=== PATIENT | male | born 1945 | race African-American/Black ===

== ENCOUNTER 2019-07-01 20:27 | Inpatient (IN) | payer BC ==
--- NOTE | 2019-07-01 21:31 | PDOC ---
History of Present Illness - General Chief Complaint: Pain, Acute Stated Complaint: BACK PAIN History Source: Patient Exam Limitations: No Limitations - History of Present Illness Initial Comments: 07/01/19 23:56 74 yo M with a hx of HTN, HLD, CVA (right sided deficits (Weakness)) and nephrolithiasis presents to the emergency department with right flank pain. Per the patient, he states it occurred suddenly this morning. The pain is consistent with his previous episode of nephrolithiasis and is sharp in nature, 8/10, and worsens with movement and denies relieving factors. Endorses nausea and vomiting. Denies the following: fevers, chills, chest pain, SOB, abdominal pain, dysuria, hematuria, diarrhea, urinary urgency, urinary frequency, diarrhea , hematochezia, testicular swelling/pain, penile discharge, and constipation. Allergies: NKDA Past History - Past Medical History Allergies/Adverse Reactions: Allergies Allergy/AdvReac Type Severity Reaction Status Date / Time No Known Drug Allergies Allergy Verified 07/01/19 20:33 Home Medications: Ambulatory Orders Ascorbic Acid [Vitamin C -] 1,000 mg PO DAILY 09/13/13 Aspirin Coated [Ecotrin -] 81 mg PO DAILY 09/13/13 Hydrochlorothiazide [Hctz -] 25 mg PO DAILY 09/13/13 Metoprolol Succinate [Toprol XL -] 25 mg PO DAILY 09/13/13 Valsartan [Diovan] 160 mg PO DAILY 09/13/13 Vitamin E [Formula E] 400 unit PO DAILY 09/13/13 Oxycodone HCl/Acetaminophen [Percocet 5-325 mg Tablet -] 1 - 2 combo PO Q6H PRN #40 tab 09/22/13 CVA: Yes ('06 RIGHT SIDED WEAKNESS) COPD: No HTN: Yes Hypercholesterolemia: Yes - Surgical History Abdominal Surgery: Yes (HERNIA) - Psycho Social/Smoking Cessation Hx Smoking History: Never smoked Have you smoked in the past 12 months: No Hx Alcohol Use: Yes (RARE) Substance Use Type: Alcohol Hx Substance Use Treatment: No Review of Systems - Review of Systems Able to Perform ROS?: Yes Is the patient limited Greenlandic proficient: No Constitutional: No: Chills, Diaphoresis, Fever, Weakness HEENTM: No: Eye Pain, Ear Pain, Nose Pain, Throat Pain, Mouth Pain Respiratory: No: Cough, Shortness of Breath, Hemoptysis Cardiac (ROS): No: Chest Pain, Lightheadedness, Palpitations, Chest Tightness ABD/GI: Yes: Nausea, Vomiting. No: Constipated, Diarrhea, Rectal Bleeding, Tarry Stools : Yes: Flank Pain (right). No: Burning, Dysuria, Hematuria, Testicular Mass, Testicular Swelling, Testicular Pain Musculoskeletal: No: Back Pain, Joint Pain, Neck Pain Integumentary: No: Bruising, Erythema, Rash Neurological: No: Headache, Numbness, Tingling, Tremors Psychiatric: No: Change in Appetite Endocrine: No: Unexplained Weight Loss Hematologic/Lymphatic: No: Anemia *Physical Exam - Vital Signs Last Vital Signs Temp Pulse Resp BP Pulse Ox 97.5 F L 61 18 213/92 H 97 07/01/19 20:28 07/01/19 20:28 07/01/19 20:28 07/01/19 20:28 07/01/19 20:28 - Physical Exam General Appearance: Yes: Nourished, Appropriately Dressed. No: Apparent Distress, Intoxicated, Obese HEENT: positive: EOMI, SOHAN, Normal Voice, Symmetrical, Pharynx Normal, Hearing Grossly Normal. negative: Pale Conjunctivae, Scleral Icterus (R), Scleral Icterus (L), Muffled/Hoarse voice, Pharyngeal Erythema, Tonsillar Exudate, Tonsillar Erythema, Nasal Congestion, Rhinorrhea, Sinus Tenderness, Excessive drooling Neck: positive: Trachea midline, Supple. negative: Tender, Lymphadenopathy (R) , Lymphadenopathy (L), Tender lateral, Tender midline Respiratory/Chest: positive: Lungs Clear, Normal Breath Sounds. negative: Chest Tender, Respiratory Distress, Accessory Muscle Use, Crackles, Rales, Rhonchi, Stridor Cardiovascular: positive: Regular Rhythm, Regular Rate, S1, S2. negative: Systolic Murmur Gastrointestinal/Abdominal: positive: Normal Bowel Sounds, Flat, Soft. negative : Tender Lymphatic: negative: Adenopathy Musculoskeletal: positive: Normal Inspection, CVA Tenderness (R). negative: CVA Tenderness (L), Vertebral Tenderness Extremity: positive: Normal Capillary Refill, Normal Inspection, Normal Range of Motion. negative: Tender, Calf Tenderness, Erythema Integumentary: positive: Normal Color, Dry, Warm. negative: Swelling, Ecchymosis Neurologic: positive: Fully Oriented, Alert, Normal Mood/Affect ED Treatment Course - LABORATORY CBC & Chemistry Diagram: 07/01/19 21:40 07/01/19 21:40 Medical Decision Making - Medical Decision Making 74 yo M with a hx of HTN, HLD, CVA (right sided deficits (Weakness)) and nephrolithiasis presents to the emergency department with right flank pain. Initial vitals: Initial Vital Signs Temp Pulse Resp BP Pulse Ox 97.5 F L 61 18 213/92 H 97 07/01/19 20:28 07/01/19 20:28 07/01/19 20:28 07/01/19 20:28 07/01/19 20:28 Work up: patient presents with right flank pain that is consistent with nephrolithiasis. ddx: UTI vs Nephrolithiasis vs pyelonephritis vs appendicitis vs colitis vs msk strain vs AAA US AAA study shows no dilatation of the aorta at the prox, mid, and distal portion. Right kidney US shows multiple simple cysts with mild hydronephrosis. Laboratory Tests 07/01/19 07/01/19 21:40 21:40 WBC 12.2 H RBC 5.24 Hgb 16.0 Hct 46.9 MCV 89.4 MCH 30.6 MCHC 34.2 RDW 13.8 Plt Count 160 MPV 9.8 Absolute Neuts (auto) 10.7 H Neutrophils % 87.2 H Lymphocytes % 8.0 Monocytes % 4.4 Eosinophils % 0.1 Basophils % 0.3 Nucleated RBC % 0 Sodium 139 Potassium 3.9 Chloride 104 Carbon Dioxide 28 Anion Gap 6 L BUN 15.8 Creatinine 1.3 Est GFR (CKD-EPI)AfAm 63.18 Est GFR (CKD-EPI)NonAf 54.51 Random Glucose 124 H Calcium 9.1 Total Bilirubin 0.5 AST 28 ALT 30 Alkaline Phosphatase 55 Total Protein 7.[address] abdomen and pelvis: on my read, the patient has extensive ketan-nephric stranding around the right kidney with multiple large cysts with mild hydronephrosis and a 7 mm stone at the right UVJ. Awaiting official report Patient was given toradol, tylenol, and morphine with marked improvement in symptoms. Patient to be signed out to Dr. Phan with pending UA studies. Will likely need urology consult for infected stone and inpatient admission for urological intervention and abx. 07/01/19 23:34 148/78 BP on repeat Discharge - Discharge Information Problems reviewed: Yes Clinical Impression/Diagnosis: Nephrolithiasis, Hydronephrosis - Follow up/Referral - Patient Discharge Instructions - Post Discharge Activity
[2019-07-01] MEDS ORDERED: ACETAMINOPHEN 1000 MG/100 ML VIAL (NON FORMULARY) IVPB ONE (21:32)
[2019-07-01] MEDS ORDERED: KETOROLAC TROMETHAMINE 15 MG/ML VIAL IVPUSH ONE (21:32)
[2019-07-01] MEDS ORDERED: SODIUM CHLORIDE 1,000 ML IV STA (21:32)
[2019-07-01] MEDS ORDERED: morphine CARPU-JECT 2 MG/1 ML DISP.SYRIN IVPUSH ONE (21:32)
[2019-07-01] MEDS ORDERED: KETOROLAC TROMETHAMINE 15 MG/ML VIAL ONE (21:55)
[2019-07-01] MEDS ORDERED: morphine SULFATE 4 MG/ML VIAL ONE (21:55)
[2019-07-01] MEDS ORDERED: ACETAMINOPHEN INJECTION 100 ML IVPB ONE (21:55)
[2019-07-01 21:59] LABS: BASO % 0.3 % (0-2.0); EOS % 0.1 % (0-4.5); HEMATOCRIT 46.9 % (35.4-49); MCH 30.6 pg (25.7-33.7); MCHC 34.2 g/dl (32.0-35.9); MEAN CELL VOLUME 89.4 fl (80-96); MEAN PLT VOLUME 9.8 fl (7.5-11.1); MONO % 4.4 % (3.8-10.2); NEUT % 87.2 % (42.8-82.8); PLATELET COUNT 160 K/MM3 (134-434); RBC 5.24 M/mm3 (4.00-5.60); RDW 13.8 % (11.9-15.9); WHITE BLOOD COUNT 12.2 K/mm3 (4.0-10.0)
[2019-07-01 22:26] LABS: ALBUMIN 3.9 g/dl (3.4-5.0); BILIRUBIN,TOTAL 0.5 mg/dL (0.2-1); BLOOD UREA NITROGEN 15.8 mg/dL (7-18); CALCIUM 9.1 mg/dL (8.5-10.1); CREATININE 1.3 mg/dL (0.55-1.3); POTASSIUM 3.9 mmol/L (3.5-5.1); TOT PROT 7.6 g/dl (6.4-8.2)
[2019-07-01] MEDS ORDERED: CLINDAMYCIN 600MG PREMIX IVPB 600 MG/50 ML BAG IVPB ONE (22:59)
[2019-07-01] MEDS ORDERED: CEFTRIAXONE 1,000 MG in DEXTROSE 5%-WATER - 50 ML IVPB ONE (23:56)
[2019-07-02] MEDS ORDERED: TAMSULOSIN HCL 0.4 MG CAP PO ONE (00:03)
[2019-07-02] MEDS ORDERED: TAMSULOSIN HCL 0.4 MG CAP ONE (00:27)
[2019-07-02] MEDS ORDERED: CEFTRIAXONE 1 GM/50 ML BAG ONE (00:27)
[2019-07-02 02:49] LABS: PH,URINE 6.5 (5.0-8.0); URINE APPEARANCE CLEAR; URINE BILIRUBIN NEGATIVE (NEGATIVE); URINE COLOR YELLOW; URINE GLUCOSE (UA) NEGATIVE (NEGATIVE); URINE KETONE NEGATIVE (NEGATIVE)
[2019-07-02 02:50] LABS: URINE NITRITE NEGATIVE (NEGATIVE)
[2019-07-02 02:51] LABS: EPI CELLS 2.6 /HPF (0-5/HPF); HYALINE CASTS 2.23 /lpf (0-8); URINE LEUK ESTERASE NEGATIVE (NEGATIVE); URINE PROTEIN 30 (NEGATIVE); URINE RBC 242.1 /hpf (0-4); URINE WBC 9.4 /hpf (0-5)
[2019-07-02] MEDS ORDERED: HYDROmorphone HCL 2 MG TABLET PO SCH (09:15)
--- NOTE | 2019-07-02 10:50 | EKG ---
Test Reason : Blood Pressure : / mmHG Vent. Rate : 070 BPM Atrial Rate : 070 BPM P-R Int : 184 ms QRS Dur : 084 ms QT Int : 394 ms P-R-T Axes : 061 -07 012 degrees QTc Int : 425 ms NORMAL SINUS RHYTHM MINIMAL VOLTAGE CRITERIA FOR LVH, MAY BE NORMAL VARIANT WHEN COMPARED WITH ECG OF 02-JUL-2019 00:27, NO SIGNIFICANT CHANGE WAS FOUND Confirmed by ZOYA RIDER MD ([id number]) on 07/02/2019 10:50:12 AM Referred By: LUNA BAUMANN Confirmed By:ZOYA RIDER MD
--- NOTE | 2019-07-02 11:01 | EKG ---
Test Reason : Blood Pressure : / mmHG Vent. Rate : 061 BPM Atrial Rate : 061 BPM P-R Int : 180 ms QRS Dur : 078 ms QT Int : 408 ms P-R-T Axes : 064 005 036 degrees QTc Int : 410 ms NORMAL SINUS RHYTHM WITH SINUS ARRHYTHMIA WHEN COMPARED WITH ECG OF 24-NOV-2005 15:10, NO SIGNIFICANT CHANGE WAS FOUND Confirmed by ZOYA RIDER MD ([id number]) on 07/02/2019 11:01:01 AM Referred By: Confirmed By:ZOYA RIDER MD
[2019-07-02 11:07] LABS: BASO % 0.5 % (0-2.0); EOS % 0.9 % (0-4.5); HEMATOCRIT 43.1 % (35.4-49); HEMOGLOBIN 14.8 GM/dL (11.7-16.9); LYMPH % 16.7 % (8-40); MCH 30.5 pg (25.7-33.7); MCHC 34.3 g/dl (32.0-35.9); MEAN PLT VOLUME 9.5 fl (7.5-11.1); MONO % 10.9 % (3.8-10.2); PLATELET COUNT 134 K/MM3 (134-434); RBC 4.84 M/mm3 (4.00-5.60); RDW 13.9 % (11.9-15.9); WHITE BLOOD COUNT 9.6 K/mm3 (4.0-10.0)
[2019-07-02] MEDS: LOSARTAN POTASSIUM 50 MG TABLET (FP) PO SCH (11:11)
[2019-07-02] MEDS: SODIUM CHLORIDE 1,000 ML IV SCH (11:11)
[2019-07-02] MEDS: ASPIRIN COATED 81 MG TABLET.EC PO SCH (11:11)
[2019-07-02] MEDS: HYDROCHLOROTHIAZIDE 25 MG TABLET (FP) PO SCH (11:12)
[2019-07-02] MEDS: metoPROLOL SUCCINATE 25 MG TAB.SR.24H (FP) PO SCH (11:12)
[2019-07-02 11:19] LABS: INR 1.06 (0.83-1.09); PROTHROMBIN TIME (PATIENT) 12.5 SEC (9.7-13.0)
[2019-07-02 11:37] LABS: ALBUMIN 3.4 g/dl (3.4-5.0); BILIRUBIN,TOTAL 0.7 mg/dL (0.2-1); BLOOD UREA NITROGEN 19.9 mg/dL (7-18); CALCIUM 8.7 mg/dL (8.5-10.1); CREATININE 1.3 mg/dL (0.55-1.3); POTASSIUM 3.7 mmol/L (3.5-5.1); TOT PROT 6.7 g/dl (6.4-8.2)
--- NOTE | 2019-07-02 13:15 | CON.ID ---
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 Patient presents to the ED today with right sided flank pain that radiates to the right side of the abdomen,according to the patient the pain radiated down currently he still feels that he is in discomfort and the feels a sensation patient has a pretty large sized stone, urology has seen the patient and the plan is to take the patient to the or for surgery for the renal stone - History Source History Provided By: Patient Limitations to Obtaining History: No Limitations - Alcohol/Substance Use Hx Alcohol Use: Yes (RARE) - Smoking History Smoking history: Never smoked Have you smoked in the past 12 months: No Home Medications - Allergies Allergies/Adverse Reactions: Allergies Allergy/AdvReac Type Severity Reaction Status Date / Time No Known Drug Allergies Allergy Verified 07/01/19 20:33 - Home Medications Home Medications: Ambulatory Orders Ascorbic Acid [Vitamin C -] 1,000 mg PO DAILY 09/13/13 Aspirin Coated [Ecotrin -] 81 mg PO DAILY 09/13/13 Hydrochlorothiazide [Hctz -] 25 mg PO DAILY 09/13/13 Metoprolol Succinate [Toprol XL -] 25 mg PO DAILY 09/13/13 Valsartan [Diovan] 160 mg PO DAILY 09/13/13 Vitamin E [Formula E] 400 unit PO DAILY 09/13/13 Oxycodone HCl/Acetaminophen [Percocet 5-325 mg Tablet -] 1 - 2 combo PO Q6H PRN #40 tab 09/22/13 Review of Systems - Review of Systems Constitutional: reports: No Symptoms Eyes: reports: No Symptoms HENT: reports: No Symptoms Neck: reports: No Symptoms Cardiovascular: reports: No Symptoms Respiratory: reports: No Symptoms Gastrointestinal: reports: No Symptoms Genitourinary: reports: Flank Pain Musculoskeletal: reports: No Symptoms Integumentary: reports: No Symptoms Neurological: reports: No Symptoms Endocrine: reports: No Symptoms Hematology/Lymphatic: reports: No Symptoms Psychiatric: reports: No Symptoms Physical Exam Vital Signs: Vital Signs Temperature 97.6 F 07/02/19 13:07 Pulse Rate 61 07/02/19 13:07 Respiratory Rate 18 07/02/19 13:07 Blood Pressure 152/73 07/02/19 13:07 O2 Sat by Pulse Oximetry (%) 96 07/02/19 12:45 Constitutional: Yes: Well Nourished, No Distress, Calm Cardiovascular: Yes: Regular Rate and Rhythm Respiratory: Yes: Regular, CTA Bilaterally Gastrointestinal: Yes: Normal Bowel Sounds, Soft Renal/: Yes: CVA Tenderness - Right Musculoskeletal: Yes: WNL Extremities: Yes: WNL Neurological: Yes: Alert, Oriented Psychiatric: Yes: Alert, Oriented Labs: CBC, BMP 07/02/19 10:52 07/02/19 10:52 Imaging - Results Cat Scan: Report Reviewed, Image Reviewed Assessment/Plan patient with multiple medical problems with flank pain for surgery today plan will continue ceftriaxone await for surgery hydration rest as per the team
--- NOTE | 2019-07-02 13:20 | HP ---
Admitting History and Physical - Admission Chief Complaint: rt flank pain scale 6 last pm. 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 Renal/: Yes: BPH, Renal Calculi Musculoskeletal: Yes: Hemiplegia - Smoking History Smoking history: Never smoked Have you smoked in the past 12 months: No - Alcohol/Substance Use Hx Alcohol Use: Yes (RARE) - Social History Usual Living Arrangement: Yes: With Spouse ADL: Independent History of Recent Travel: No Home Medications - Allergies Allergies/Adverse Reactions: Allergies Allergy/AdvReac Type Severity Reaction Status Date / Time No Known Drug Allergies Allergy Verified 07/01/19 20:33 - Home Medications Home Medications: Ambulatory Orders Ascorbic Acid [Vitamin C -] 1,000 mg PO DAILY 09/13/13 Aspirin Coated [Ecotrin -] 81 mg PO DAILY 09/13/13 Hydrochlorothiazide [Hctz -] 25 mg PO DAILY 09/13/13 Metoprolol Succinate [Toprol XL -] 25 mg PO DAILY 09/13/13 Valsartan [Diovan] 160 mg PO DAILY 09/13/13 Vitamin E [Formula E] 400 unit PO DAILY 09/13/13 Oxycodone HCl/Acetaminophen [Percocet 5-325 mg Tablet -] 1 - 2 combo PO Q6H PRN #40 tab 09/22/13 Family Medical History Family History: Unremarkable Review of Systems - Review of Systems Constitutional: reports: No Symptoms Eyes: reports: No Symptoms, Floaters HENT: reports: No Symptoms Neck: reports: No Symptoms Cardiovascular: reports: No Symptoms Respiratory: reports: No Symptoms Gastrointestinal: reports: No Symptoms Genitourinary: reports: Flank Pain Breasts: reports: No Symptoms Reported Musculoskeletal: reports: No Symptoms Integumentary: reports: No Symptoms Neurological: reports: Other (rt larisa) Endocrine: reports: No Symptoms Hematology/Lymphatic: reports: No Symptoms Psychiatric: reports: No Symptoms Physical Examination Vital Signs: Vital Signs Temperature 97.6 F 07/02/19 13:07 Pulse Rate 61 07/02/19 13:07 Respiratory Rate 18 07/02/19 13:07 Blood Pressure 152/73 07/02/19 13:07 O2 Sat by Pulse Oximetry (%) 96 07/02/19 12:45 Constitutional: Yes: Calm Eyes: Yes: WNL HENT: Yes: WNL Neck: Yes: WNL Cardiovascular: Yes: WNL Respiratory: Yes: WNL Gastrointestinal: Yes: WNL ...Rectal Exam: Yes: Deferred Renal/: Yes: CVA Tenderness - Left Breast(s): Yes: WNL Musculoskeletal: Yes: WNL Extremities: Yes: WNL Edema: No Peripheral Pulses WNL: Yes Integumentary: Yes: WNL Neurological: Yes: WNL ...Motor Strength: WNL Psychiatric: Yes: WNL Labs: CBC, BMP 07/02/19 10:52 07/02/19 10:52 Assessment/Plan cleared procedure vss gu today ? eswal vs lithotripsy ? stent
[2019-07-02 13:23] VITALS: BMI 28.9
[2019-07-02] MEDS ORDERED: cefTRIAXone SODIUM 1 GM VIAL ONE (13:55)
[2019-07-02] MEDS ORDERED: DEXTROSE 5%-WATER - 50 ML IVPB ONE (13:56)
[2019-07-02] MEDS: CEFTRIAXONE 1 GM in DEXTROSE 5%-WATER - 50 ML IVPB SCH (14:09)
[2019-07-02] MEDS ORDERED: GENTAMICIN 80MG PREMIX BAG IVPB ONE (14:20)
[2019-07-02] MEDS ORDERED: PROPOFOL 20 ML ONE ×2 (15:45)
[2019-07-02] MEDS ORDERED: MIDAZOLAM HCL 2 MG/2 ML SINGLE DOSE VIAL ONE (15:46)
[2019-07-02] MEDS ORDERED: SUCCINYLCHOLINE CHLORIDE 200 MG/10 ML SYRINGE ONE (15:46)
--- NOTE | 2019-07-02 16:21 | CONS ---
DATE OF CONSULTATION: DATE OF DICTATION: 07/02/2019 HISTORY OF PRESENT ILLNESS: Patient is a 74-year-old male, admitted via the emergency room, with acute onset of right flank pain colicky in nature. This began last night. The pain radiates down to the right groin, right lower quadrant, and testicle, sharp and colicky in nature. Patient has had a CVA in the past with no residual. He also has history of BPH. He never smoked. He rarely uses alcohol. He works in the [employer]. He states that his father had prostate cancer. There is no recent travel. There are no known drug allergies. In the emergency room, his temperature was 97.6, blood pressure 152/73, pulse oximetry 96, respirations 18 and regular. His white count was 9.6, hemoglobin and hematocrit is 14.8 over 43.1, platelets were 134, BUN and creatinine were 19.9 over 1.3, random glucose was 93. The patient underwent a CT of the abdomen and pelvis without contrast and this revealed distal right ureteral stone causing proximal hydroureteronephrosis. The patient's liver was negative. Gallbladder negative. Biliary ducts nondilated. Pancreas negative. Spleen negative. Adrenals negative. The kidneys revealed right perinephric stranding with hydroureteronephrosis. The stone that was previously in the renal pelvis is now in the lower ureter and measures 8.3 mm. There are right-sided, multiple renal cysts, the most dominant one is in the upper pole measuring 6.1 cm. The left kidney reveals multiple cysts in the lower pole and upper pole. IMPRESSION: At present is right hydronephrosis, right ureteral stone. PLAN: Is for a cystoscopy, right retrograde pyelogram, right ureteroscopic laser lithotripsy with placement of a JJ stent. Patient will undergo a stone workup, including a 24-hour urine collection, as well as a PTH level, uric acid, oxylate, and phosphorus level. This was explained to patient and family and they agreed. Wendy [id number]
[2019-07-02] MEDS ORDERED: EPHEDRINE SULFATE/0.9% NACL/PF 50 MG/10 ML SYRINGE NR ONE (16:22)
--- NOTE | 2019-07-02 16:56 | OP ---
Operative Note - Note: Operative Date: 07/02/19 Pre-Operative Diagnosis: RT. HYDRONEPHROSIS, RT. MID-URETERAL STONE Operation: CYSTO, RT. RETROGRADE PYELOGRAM, RT. URETEROSCOPY AND STONE MANIPULATION AND PLACEMENT OF A RT. 24CM-6F JJ STENT. PT. WILL NEED OP ESWL NEXT WK. Findings: IMPACTED RT. MID-URETERAL STONE WITH RT. HYDROURETERONEPHROSIS. Post-Operative Diagnosis: Same as Pre-op Surgeon: Semaj Anna Anesthesia: General Specimens Removed: URINE Estimated Blood Loss (mls): 0 Drains & Tubes with Location: 24CM-6F-JJ STENT Drains, Volume Out (mls): 0 Blood Volume Replaced (mls): 0 Fluid Volume Replaced (mls): 0 Operative Report Dictated: Yes
[2019-07-02] MEDS ORDERED: ONDANSETRON 4 MG/2 ML VIAL IVPUSH PRN (17:47)
[2019-07-02] MEDS ORDERED: LACTATED RINGERS SOLUTION 1,000 ML IV SCH ×2 (18:00→18:30)
--- NOTE | 2019-07-02 19:00 | OP ---
DATE OF OPERATION: DATE OF DICTATION: 07/02/2019 PREOPERATIVE DIAGNOSIS: Right hydronephrosis. Right ureteral stone. POSTOPERATIVE DIAGNOSIS: Right hydronephrosis. Right ureteral stone. OPERATIVE PROCEDURE: Cystourethroscopy, right retrograde pyelogram, right ureteroscopy, and placement of a right JJ stent. ANESTHESIA: General. DESCRIPTION OF PROCEDURE: Under above stated anesthesia, patient was prepped and draped in the usual sterile manner. He was placed in the dorsal lithotomy position. External genitalia were atraumatic. Meatus is adequate. Cystoscopy using a continuous flow 30-degree scope revealed normal anterior urethra. Prostatic urethra revealed mild bilateral hypertrophy of the prostate. The bladder was entered. Urine was collected for HEEL SEAT SANDER. Inspection of the bladder revealed a grade 1 trabeculation. No lesions were noted. No calculi were seen. Ureteral orifices were within normal limits with efflux of clear urine from the left, none was seen from the right. A Flexi-Tip catheter was placed into the right ureteral orifice and 5 mL of contrast was injected. This revealed dilated lower ureter with no advancement of the contrast above the lower third of the ureter. The cystoscope was removed. Ureteroscopy was also performed, and this revealed a stone in the upper portion of the lower 3rd ureter with some maneuvering and multiple attempts. A glidewire was passed by the stone and into the right renal pelvis. A 24-cm, 6-Malay JJ stent was placed into the right kidney. X-rays confirmed good position of the stents. The bladder was emptied, the scope was removed. The patient tolerated the procedure well. He returned to the recovery room in good condition. Wendy [id number]
[2019-07-03 02:34] VITALS: PULSE 80
[2019-07-03 07:56] LABS: BASO % 0.3 % (0-2.0); EOS % 1.6 % (0-4.5); HEMATOCRIT 38.6 % (35.4-49); HEMOGLOBIN 13.3 GM/dL (11.7-16.9); LYMPH % 23.8 % (8-40); MCH 30.6 pg (25.7-33.7); MCHC 34.5 g/dl (32.0-35.9); MEAN CELL VOLUME 88.7 fl (80-96); MEAN PLT VOLUME 9.8 fl (7.5-11.1); MONO % 9.2 % (3.8-10.2); NEUT % 65.1 % (42.8-82.8); PLATELET COUNT 133 K/MM3 (134-434); RBC 4.35 M/mm3 (4.00-5.60); RDW 13.4 % (11.9-15.9); WHITE BLOOD COUNT 6.5 K/mm3 (4.0-10.0)
[2019-07-03 08:16] LABS: BILIRUBIN,TOTAL 0.6 mg/dL (0.2-1); BLOOD UREA NITROGEN 17.9 mg/dL (7-18); CREATININE 1.2 mg/dL (0.55-1.3); POTASSIUM 3.4 mmol/L (3.5-5.1)
[2019-07-03] MEDS ORDERED: ACETAMINOPHEN 325 MG TABLET (FP) PO PRN (08:29)
[2019-07-03] MEDS ORDERED: TAMSULOSIN HCL 0.4 MG CAP PO SCH (08:30)
[2019-07-03] MEDS ORDERED: DEXTROSE 5%-WATER - 50 ML IVPB ONE (09:33)
[2019-07-03] MEDS ORDERED: cefTRIAXone SODIUM 1 GM VIAL ONE (09:33)
[2019-07-03] MEDS: SODIUM CHLORIDE 1,000 ML IV SCH (09:47)
[2019-07-03] MEDS: CEFTRIAXONE 1 GM in DEXTROSE 5%-WATER - 50 ML IVPB SCH (09:47)
[2019-07-03] MEDS: ASPIRIN COATED 81 MG TABLET.EC PO SCH (09:47)
[2019-07-03] MEDS: LOSARTAN POTASSIUM 50 MG TABLET (FP) PO SCH (09:48)
[2019-07-03] MEDS: HYDROCHLOROTHIAZIDE 25 MG TABLET (FP) PO SCH (09:48)
[2019-07-03] MEDS: metoPROLOL SUCCINATE 25 MG TAB.SR.24H (FP) PO SCH (09:48)
[2019-07-03 09:53] VITALS: BP 140/68; TEMP 98.4
--- NOTE | 2019-07-03 12:20 | DS ---
Physical Examination Vital Signs: Vital Signs Temperature 98.4 F 07/03/19 09:00 Pulse Rate 80 07/03/19 09:00 Respiratory Rate 17 07/03/19 09:00 Blood Pressure 140/68 07/03/19 09:00 O2 Sat by Pulse Oximetry (%) 94 L 07/02/19 21:00 Constitutional: Yes: Well Nourished Eyes: Yes: WNL HENT: Yes: WNL Neck: Yes: WNL Cardiovascular: Yes: WNL Respiratory: Yes: WNL Gastrointestinal: Yes: WNL ...Rectal Exam: Yes: Deferred Renal/: Yes: Hematuria Breast(s): Yes: WNL Musculoskeletal: Yes: WNL Extremities: Yes: WNL Edema: No Peripheral Pulses WNL: Yes Integumentary: Yes: WNL Wound/Incision: Yes: Clean/Dry Neurological: Yes: WNL ...Motor Strength: WNL Psychiatric: Yes: WNL Labs: CBC, BMP 07/03/19 06:20 07/03/19 06:20 Discharge Summary Problems reviewed: Yes Reason For Visit: CALCULUS OF KIDNEY Current Active Problems Hydronephrosis (Acute) Nephrolithiasis (Acute) - Instructions Diet, Activity, Other Instructions: gu f/u out pt to make appt appy w me wed 1200 noon cont all tx as is home sono renal prior to leaving d/c pt home as directed Referrals: Jaime Anna RES [Primary Care Provider] - - Home Medications Comprehensive Discharge Medication List: Ambulatory Orders Ascorbic Acid [Vitamin C -] 1,000 mg PO DAILY 09/13/13 Aspirin Coated [Ecotrin -] 81 mg PO DAILY 09/13/13 Hydrochlorothiazide [Hctz -] 25 mg PO DAILY 09/13/13 Metoprolol Succinate [Toprol XL -] 25 mg PO DAILY 09/13/13 Valsartan [Diovan] 160 mg PO DAILY 09/13/13 Vitamin E [Formula E] 400 unit PO DAILY 09/13/13 Oxycodone HCl/Acetaminophen [Percocet 5-325 mg Tablet -] 1 - 2 combo PO Q6H PRN #40 tab 09/22/13
--- NOTE | 2019-07-06 09:26 | PATH ---
Cytology Non-Gynecological Report Patient Name: SULTANA ANN Med. Rec. #: [id number] /Age/Gender: 1945 (Age: 74) / M Account: [id number] Location: [facility] MED/SURG Taken: 07/02/2019 Received: 07/05/2019 Reported: 07/06/2019 Physicians: Jaime Anna M.D. Specimen(s) Received URINE Clinical History Right hydronephrosis and ureteral stone Final Diagnosis URINE FOR CYTOLOGY: SATISFACTORY FOR EVALUATION. NEGATIVE FOR HIGH GRADE UROTHELIAL CARCINOMA. SCATTERED UROTHELIAL CELLS PRESENT. RED BLOOD CELLS AND NEUTROPHILS PRESENT. FEW UROTHELIAL FRAGMENTS PRESENT. Comment: Urothelial fragments are suggestive of lithiasis, however cytologic differential diagnosis include prior instrumentation, or a low grade papillary neoplasm. Suggest clinical/radiologic correlation. Electronically Signed Karol De Jesus M.D. Gross Description Approximately 50 cc of yellow fluid received fresh. One cytofunnel prepared and Pap stained.
== END 2019-07-03 16:16 | disposition home or self-care (01) | DRG 660 ==
LOC: JER 20:27 → JERBED 07-02 02:10 → J7W 07-02 13:01
PROVIDERS: ADMIT Family Medicine; ATTEND Family Medicine
PROC: 0T768DZ Dilation of Right Ureter with Intraluminal Device, Via Natural or Artificial Opening Endoscopic (ICD-10-PCS; principal; 2019-07-02 15:00)
PROC: BT1DZZZ Fluoroscopy of Right Kidney, Ureter and Bladder (ICD-10-PCS; 2019-07-02 15:00)
DX: N13.2 Hydronephrosis with renal and ureteral calculous obstruction (principal); I69.351 Hemiplegia and hemiparesis following cerebral infarction affecting right dominant side; I10 Essential (primary) hypertension; E78.5 Hyperlipidemia, unspecified; N40.0 Benign prostatic hyperplasia without lower urinary tract symptoms
CPT/HCPCS: 36415; 74177-TC; 76000-TC-FY; 76775-TC; 80053; 81003; 85025; 85610; 87040; 87086; 88108; 93005; 93010; 94760; 99285-25; J0131; J7030; Q9967